=== PATIENT | female | born 1960 | race Caucasian/White ===

== ENCOUNTER 2023-07-04 20:50 | Emergency (ER) | payer OTHER, SELFPAY ==
[2023-07-04 20:56] VITALS: BP 149/53; PULSE 67; RESP 18; TEMP 36.7; O2SAT 95; BMI 33.0
--- NOTE | 2023-07-04 21:03 | PC.NURSE ---
No redness, swelling, bruising and skin intact at site of complaint.
--- NOTE | 2023-07-04 21:11 | XR_ITS ---
The [address] [address] Patient Name: DONG SINGLETON MRN: [id number] date: 1960 Sex: F Assigned Patient Location: ER Current Patient Location: ER Accession/Order Number: [id number] Exam Date: 07/04/2023 21:38 Report Date: 07/04/2023 22:05 At the request of: GABBY CANCINO Procedure: XR ribs LT min 3V w CXR1V Exam: Radiographs: XR ribs LT min 3V w CXR1V Reason for exam: left pos. chest wall injury Comparison: Chest x-ray dated 06/08/2022 XR/XR ribs LT min 3V w CXR1V IMPRESSION: No radiographically evident left rib fractures. Chest and left rib radiographs are otherwise unremarkable. Electronically authenticated by: TERRELL DUVALL Date: 07/04/2023 22:05
--- NOTE | 2023-07-04 21:12 | ED.BACK1 ---
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 It did not knock her down but pushed her. She developed pain at the site. Denies other injury. The incident did frighten her and she began crying. She is not short of breath. Pain does not increase with deep breath. No associated nausea or vomiting. Related Data Home Medications Medication Instructions Recorded Confirmed atorvastatin 20 mg tablet 20 mg PO DAILY 07/04/23 07/04/23 lisinopril 10 mg tablet 10 mg PO QAM 07/04/23 07/04/23 metformin 850 mg tablet 1,700 mg PO QAM 07/04/23 07/04/23 sertraline 100 mg tablet 100 mg PO QAM 07/04/23 07/04/23 Allergies Allergy/AdvReac Type Severity Reaction Status Date / Time Sulfa (Sulfonamide Allergy Severe Verified 07/04/23 20:59 Antibiotics) sulfamethoxazole Allergy Severe Verified 07/04/23 20:59 [From Bactrim] trimethoprim [From Bactrim] Allergy Severe Verified 07/04/23 20:59 Review of Systems ROS Status of ROS 10 or more systems reviewed and unremarkable except as noted in history and below Exam Constitutional Vital Signs, click to edit/add: Last Vital Signs Temp 98.0 F 07/04/23 20:56 Pulse 67 07/04/23 20:56 Resp 18 07/04/23 20:56 BP 149/53 H 07/04/23 20:56 Pulse Ox 95 07/04/23 20:56 O2 Del Method Room Air 07/04/23 20:56 Common normals: no apparent distress, average body habitus, oriented x3, no limitations, healthy appearing, alert and well nourished [facility] Common normals: normocephalic and head/scalp atraumatic Respiratory Common normals: normal respiratory effort, no retractions, no use of accessory muscles and clear to auscultation bilaterally Cardio Common normals: regular rate, regular rhythm, S1 normal heart sound and S2 normal heart sound GI Common normals: Normal to inspection, nondistended, normoactive bowel sounds present, soft to palpation and non-tender Back & Pelvis Back image (female): 1. mild tenderness. No obvious contusion Extremity Common normals: normal to inspection and full ROM Neuro Common normals: oriented x3, CN's II-XII intact bilaterally, moves all extremities and no focal motor deficits Psych Appearance: grossly normal Course Vital Signs Vital signs: Vital Signs Temperature 98.0 F 07/04/23 20:56 Pulse Rate 67 07/04/23 20:56 Respiratory Rate 18 07/04/23 20:56 Blood Pressure 149/53 H 07/04/23 20:56 Pulse Oximetry 95 07/04/23 20:56 Oxygen Delivery Method Room Air 07/04/23 20:56 Temperature 98.0 F 07/04/23 20:56 Pulse Rate 67 07/04/23 20:56 Respiratory Rate 18 07/04/23 20:56 Blood Pressure 149/53 H 07/04/23 20:56 Pulse Oximetry 95 07/04/23 20:56 Oxygen Delivery Method Room Air 07/04/23 20:56 MDM - Back Pain/Injury MDM Narrative Medical decision making narrative: [place] [address] XRay Report Signed Patient: DONG SINGLETON MR#: [id number] : 1960 Acct:[id number] Age/Sex: 62 / F ADM Date: 07/04/23 Loc: ER Attending Dr: Ordering Physician: Chapo Aiken Date of Service: 07/04/23 Procedure(s): XR ribs LT min 3V w CXR1V Accession Number(s): [id number] cc: Chapo Aiken; Physician,Non-Staff M.D.~ The [address] [id number] Patient Name: DONG SINGLETON MRN: [id number] date: 1960 Sex: F Assigned Patient Location: ER Current Patient Location: ER Accession/Order Number: [id number] Exam Date: 07/04/2023 21:38 Report Date: 07/04/2023 22:05 At the request of: CHAPO AIKEN Procedure: XR ribs LT min 3V w CXR1V Exam: Radiographs: XR ribs LT min 3V w CXR1V Reason for exam: left pos. chest wall injury Comparison: Chest x-ray dated 06/08/2022 XR/XR ribs LT min 3V w CXR1V IMPRESSION: No radiographically evident left rib fractures. Chest and left rib radiographs are otherwise unremarkable. 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 left pos. rib cage. Was not knocked down. Does have pain that is mild and positional. skin clear. rib films neg. Patient advised of diagnosis of bruised ribs and discharged home Discharge Plan Discharge Chief Complaint: Back Pain/Injury Clinical Impression: Bruised ribs Patient Disposition: Home, Self-Care Prescriptions / Home Meds: No Action atorvastatin 20 mg tablet 20 mg PO DAILY lisinopril 10 mg tablet 10 mg PO QAM metformin 850 mg tablet 1,700 mg PO QAM sertraline 100 mg tablet 100 mg PO QAM Instructions: Rib Contusion (ED) Stand Alone Forms: Portal Instructions Referrals: Physician,Non-Staff, MD [Primary Care Provider] - 1 week
== END 2023-07-04 22:45 | disposition home or self-care (01) ==
PROVIDERS: Emergency Provider Internal Medicine
DX: R07.9 Chest pain, unspecified (principal); S20.212A Contusion of left front wall of thorax, initial encounter; V98.8XXA Other specified transport accidents, initial encounter
CPT/HCPCS: 71101; 99283

== ENCOUNTER 2024-04-09 18:05 | Emergency (ER) | payer OTHER, SELFPAY ==
[2024-04-09 18:08] VITALS: BP 149/65; PULSE 62; TEMP 37.5; O2SAT 99; BMI 27.5
--- OUTSIDE RECORDS SUMMARY | 2024-04-09 18:13 | XMS_ITS | CCD ---
Author Organization [place] [facility] Team Providers Care Functional Analyst Name Role Phone GABBY CANCINO Attending Unavailable GABBY CANCINO Admitting Unavailable RAYNA CHONG Consulting Unavailable MISC, DR HEALY Primary Care Unavailable DEZ MEMBRENO Consulting Unavailable CAITLIN OLMOS Consulting Unavailable CAITLIN OLMOS Admitting Unavailable MISZuleima, DR HEALY Primary Care Unavailable CAITLIN OLMOS Attending Unavailable Ashley Logan Primary Care Physician Caitlin OLMOS Primary Care Physician Haley Acosta MD Primary Care Provider CAITLIN OLMOS Attending Unavailable CAITLIN OLMOS Attending Unavailable Caitlin OLMOS Attending Unavailable Caitlin OLMOS Admitting Unavailable Caitlin OLMOS Referring Unavailable Akkina, Zen Attending Unavailable Akkina, Zen Admitting Unavailable Akkina, Zen Attending Unavailable Akkina, Zen Admitting Unavailable Akkina, Zen Attending Unavailable Akkina, Zen Admitting Unavailable Allergies Allergy Classification Reported Allergen(s) Allergy Type Date of Onset Reaction(s) Facility (2 sources) Sulfamethoxazole / Trimethoprim; Translations: [Bactrim] Drug Allergy [facility] (1 source) Sulfonamides (Antibiotic) Drug allergy (disorder) 06-08-20 [facility] (6 sources) Sulfamethoxazole / Trimethoprim; Translations: [sulfamethoxazole-tr imethoprim] Drug Allergy 04-17-20 23 Urticaria (disorder), Hives, Rash [facility] (6 sources) Sulfonamides (Antibiotic); Translations: [sulfa drugs] Allergy to substance 04-08-20 Unknown [facility] (1 source) Sulfonamides (Antibiotic) Drug Allergy 04-17-20 Rash [facility] Medications Current Medications Medication Drug Class(es) Dates Sig (Normalized) Sig (Original) acetaminophen 325 mg / HYDROcodone bitartrate 5 mg oral tablet (5 sources) Opioid Agonist Start: 11-01-2020 [place] 325 mg-5 mg oral tablet 1 tab(s), Oral, q6hr as needed for pain, 12 tab(s), Refill(s) 0 Start Date: 11/01/20 Status: Ordered atorvastatin 20 mg oral tablet (6 sources) HMG-CoA Reductase Inhibitor Start: 04-17-2023 take 1 tablet by mouth in the morning atorvastatin (Lipitor) 20 MG tablet Indications: Mixed hyperlipidemia (CMS/HCC) Take 1 tablet (20 mg) by mouth in the morning. 90 tablet 3 04/17/2023 Active Start: 06-28-2022 atorvastatin R efills(s) 0 Start Date: 06/28/22 Status: Ordered cyclobenzaprine hydrochloride 10 mg oral tablet (5 sources) Muscle Relaxant Start: 11-01-2020 take 1 tablet by mouth three times daily as needed for muscle spasms cyclobenzaprine 10 mg Tab 10 mg = 1 tab(s), Oral, TID, PRN for spasm, # 20 tab(s), Refills(s) 0 Start Date: 11/01/20 Status: Ordered lisinopril 10 mg oral tablet (6 sources) Angiotensin Converting Enzyme Inhibitor Start: 04-17-2023 take 1 tablet by mouth in the morning lisinopril 10 MG tablet Indications: Primary hypertension (CMS/HCC) Take 1 tablet (10 mg) by mouth in the morning. 90 tablet 3 04/17/2023 Active Start: 06-28-2022 lisinopril Ref ills(s) 0 Start Date: 06/28/22 Status: Ordered {2 (480 ML) (magnesium sulfate 0.0277 MEQ/ML / potassium sulfate 0.0374 MEQ/ML / sodium sulfate 0.257 MEQ/ML Oral Solution) } Pack [Suprep Bowel Prep Kit] (5 sources) Start: 06-28-2022 Suprep Bowel P rep Kit oral liquid See Instructions, 1 kit(s), Refill(s) 0, 177 mL Oral As Directed 2 dose(s), [facility] #[id number], 163.8, cm, 06/28/22 16:09:00 EST, Height/Length Dosing, 94.3, kg, 06/28/22 16:09:00 EST, Weight Dosing Start Date: 06/28/22 Status: Ordered metFORMIN hydrochloride 850 mg oral tablet (6 sources) Biguanide Start: 04-17-2023 take 2 tablets by mouth in the morning metFORMIN (Glucophage) 850 MG tablet Indications: Type 2 diabetes mellitus without complication, unspecified whether mcc insulin use (CMS/HCC) Take 2 tablets (1,700 mg) by mouth in the morning. 180 tablet 3 04/17/2023 Active Start: 06-28-2022 metformin Refi lls(s) 0 Start Date: 06/28/22 Status: Ordered naproxen 500 mg oral tablet (5 sources) Nonsteroidal Anti-inflammatory Drug Start: 11-01-2020 take 1 tablet by mouth twice daily Naprosyn 500 mg Tab 500 mg = 1 tab(s), Oral, BID, # 20 tab(s), Refills(s) 0 Start Date: 11/01/20 Status: Ordered 0.25 mg, 0.5 mg dose 1.5 ml semaglutide 1.34 mg/ml pen injector (2 sources) Start: 07-21-2023 inject 0.5 mg by subcutaneous injection every week semaglutide (Ozempic, 0.25 or 0.5 MG/DOSE,) 2 MG/1.5ML solution pen-injector Indications: Type 2 diabetes mellitus without complication, 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 1 each 2 04/17/2023 07/21/2023 Discontinued (Reorder) sertraline 100 mg oral tablet (6 sources) Serotonin Reuptake Inhibitor Start: 06-28-2022 sertraline 100 mg Ta b Refills(s) 0 Start Date: 06/28/22 Status: Ordered Problems Active Problems Problem Classification Problem Date Documented Da te Episodic/Chronic Anxiety disorders (1 source) Anxiety; Translations: [Anxiety disorder, unspecified] Onset: 04-17-2023 04-17-2023 Chronic Diabetes mellitus without complication (2 sources) Type 2 diabetes mellitus without complication; Translations: [Type 2 diabetes mellitus without complications] Onset: 04-17-2023 07-21-2023 Chronic Disorders of lipid metabolism (1 source) Mixed hyperlipidemia; Translations: [Mixed hyperlipidemia] Onset: 04-17-2023 04-17-2023 Chronic Essential hypertension (2 sources) Essential hypertension; Translations: [Essential (primary) hypertension] Onset: 04-17-2023 08-03-2023 Chronic Other aftercare (1 source) long term care pharmacist (current) use of oral hypoglycemic drugs; Translations: [ASSISTED USE ORAL HYPOGLYCEMIC DX] Onset: 06-12-2022 Episodic Other aftercare (1 source) Other dedicated 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 truck driver (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) drug therapy; Translations: [OTH ASSISTED CURRENT DRUG THERAPY] Onset: 06-12-2022 Episodic Other gastrointestinal disorders (1 source) Abnormal feces; Translations: [Other fecal abnormalities] Onset: 06-28-2022 Episodic Other screening for suspected conditions (not mental disorders or infectious disease) (6 sources) Stool DNA-based colorectal cancer screening positive; Translations: [Patient encounter status] 06-28-2022 Episodic Other upper respiratory infections (1 source) Acute upper respiratory infection, unspecified; Translations: [ACUTE UP RESPIRATORY INFECTION UNS] Onset: 06-12-2022 Episodic Unclassified (3 sources) COUGH, UNSPECIFIED; Translations: [COUGH, UNSPECIFIED] Onset: 06-12-2022 Unclassified (3 sources) CONTACT W/AND (SUSP) EXPOS COVID-19; Translations: [CONTACT W/AND (SUSP) EXPOS COVID-19] Onset: 07-05-2021 Viral infection (1 source) COVID-19; Translations: [COVID-19] Onset: 07-05-2021 Past or Other Problems Problem Classification Problem Date Documented Da te Episodic/Chronic Unclassified (1 source) COUGH, UNSPECIFIED; Translations: [COUGH, UNSPECIFIED] Onset: 06-08-2022 Unclassified (1 source) CONTACT W/AND (SUSP) EXPOS COVID-19; Translations: [CONTACT W/AND (SUSP) EXPOS COVID-19] Onset: 06-30-2021 Results Test Name Value Interpretation Reference Range Facility P[facility] [place] 04-06-2024 Parathyrin.intact [Mass/Vol] 50 pg/mL Invalid Interpretation Code 15 [facility] Comment on above: Result Comment: Perf ormed at: [facility] [address] [id number] PhD Zac Mcfadden Performed By: #### 1 [id number] #### [facility] [address] [place] [address] CHEMISTRYOrdered By: SYSTEM SYSTEM on 04-05-2024 25-hydroxyvitamin D3 [Mass/Vol] 26.5 ng/mL Low 30.0 - 100.0 ng/mL Remisol Chem Albumin [Mass/Vol] 4.3 g/dL Normal 3.3 - 5.0 gm/dL [facility] Anion gap [Moles/Vol] 13 mmol/L Normal 6 - 16 mEq/L R emisol Chem Calcium [Mass/Vol] 9.5 mg/dL Normal 8.9 - 11. 1 mg/dL [facility] Chloride [Moles/Vol] 106 mmol/L Normal 101 - 1 11 mmol/L [facility] CO2 [Moles/Vol] 29 mmol/L Normal 21 - 31 mmol/L [facility] Creatinine [Mass/Vol] 1.1 mg/dL Normal 0.5 - 1.3 mg/dL [facility] eGFR 56 mL/min/1.73 m2 Low >=59mL/min /1. 73 m2 [facility] Glucose [Mass/Vol] 137 mg/dL Normal 55 - 199 mg/dL [facility] Phosphate [Mass/Vol] 3.9 mg/dL Normal 1.9 - 4 .6 mg/dL [facility] Potassium [Moles/Vol] 4.6 mmol/L Normal 3.5 - 5.3 mmol/L [facility] Sodium [Moles/Vol] 143 mmol/L Normal 135 - 145 mmol/L [facility] Urea nitrogen [Mass/Vol] 20 mg/dL Normal 5 - 21 mg/dL [facility] Urea nitrogen/Creatinine [Mass ratio] 18 mg/mg Normal 10 - 20 [facility] Protein/Creatinine (U) [Ratio] 6.50 mg/gm Cr Normal 0.00 - 200.00 mg/gm Cr Remisol Chem U Creatinine 70.4 mg/dL Invalid Interpretation Code Remisol Chem Ur Total Protein 4.6 mg/dL Invalid Interpretation Code Remisol Chem HEMATOLOGYOrdered By: SYSTEM SYSTEM on 04-05-2024 Hematocrit (Bld) [Volume fraction] 39.1 % Normal 34.0 - 46.0 % Remisol Heme Hemoglobin (Bld) [Mass/Vol] 13.8 g/dL Normal 12.0 - 16.0 gm/dL Remisol Heme Hct & Hgbon 04-05-2024 Hematocrit (Bld) [Volume fraction] 39.1 % Normal 34.0-46.0 [facility] Comment on above: Performed By: #### 1 [id number] #### [facility] [address] [place] [address] Hemoglobin (Bld) [Mass/Vol] 13.8 g/dL Normal 12.0-16.0 [facility] Comment on above: Performed By: #### 1 [id number] #### [facility] [address] [place] [address] Renal Panelon 04-05-2024 Albumin [Mass/Vol] 4.3 g/dL Normal 3.3-5.0 [facility] Comment on above: Performed By: #### 1 [id number] #### [facility] [address] [place] [address] Anion gap [Moles/Vol] 13 mmol/L Normal 6-16 [facility] Comment on above: Performed By: #### 1 [id number] #### [facility] [address] [place] [address] Calcium [Mass/Vol] 9.5 mg/dL Normal 8.9-11.1 [facility] Comment on above: Performed By: #### 1 [id number] #### [facility] [address] [place] [address] Chloride [Moles/Vol] 106 mmol/L Normal 101-111 [facility] Comment on above: Performed By: #### 1 [id number] #### [facility] [address] [place] [address] CO2 [Moles/Vol] 29 mmol/L Normal 21-31 [facility] Comment on above: Performed By: #### 1 [id number] #### [facility] [address] [place] [address] Creatinine [Mass/Vol] 1.1 mg/dL Normal 0.5-1.3 [facility] Comment on above: Performed By: #### 1 [id number] #### [facility] [address] [place] [address] Glucose [Mass/Vol] 137 mg/dL Normal 55-199 [facility] Comment on above: Performed By: #### 1 [id number] #### [facility] [address] [place] [address] Phosphate [Mass/Vol] 3.9 mg/dL Normal 1.9-4.6 [facility] Comment on above: Performed By: #### 1 [id number] #### [facility] [address] [place] [address] Potassium [Moles/Vol] 4.6 mmol/L Normal 3.5-5.3 [facility] Comment on above: Performed By: #### 1 [id number] #### [facility] [address] [place] [address] Sodium [Moles/Vol] 143 mmol/L Normal 135-145 [facility] Comment on above: Performed By: #### 1 [id number] #### [facility] [address] [place] [address] Urea nitrogen [Mass/Vol] 20 mg/dL Normal 5-21 [facility] Comment on above: Performed By: #### 1 [id number] #### [facility] [address] [place] [address] Urea nitrogen/Creatinine [Mass ratio] 18 No Units Normal 04-14 [facility] Comment on above: Performed By: #### 1 [id number] #### [facility] [address] [place] [address] U Protein/Creat Ratioon 03-26 Protein/Creatinine (U) [Ratio] 6.50 mg/gm Cr Normal .00-200.00 [facility] Comment on above: Performed By: #### 1 [id number] #### [facility] [address] [place] [address] U Creatinine 70.4 mg/dL Invalid Interpretation Code [facility] Comment on above: Performed By: #### 1 [id number] #### [facility] [address] [place] [address] Ur Total Protein 4.6 mg/dL Invalid Interpretation Code [facility] Comment on above: Performed By: #### 1 [id number] #### [facility] [address] [place] [address] URINALYSISOrdered By: SYSTEM SYSTEM on 04-05-2024 Bilirubin Ql (U) Negative Normal Negativemg/dL [facility] UA Auto SS Clarity (U) Clear (04/05/24 10:44 AM) Normal Clear [facility] UA Auto SS Color (U) Light-Yellow 1 (04/05/24 10:44 AM) Normal Yellow [facility] UA Auto SS Comment on above: Interpretive Data: M icroscopic readings are only performed on those samples that meet specific criteria set forth by [facility]. Glucose Ql (U) Negative Normal Negativemg/dL [facility] UA Auto SS Hemoglobin Auto test strip (U) [Mass/Vol] Negative Normal Negativemg/dL [facility] Aut o SS Ketones Auto test strip Ql (U) Negative Normal Negativemg/dL [facility] UA Auto SS Leukocyte esterase Auto test strip Ql (U) Negative Normal NegativeLeu/u L [facility] UA Auto SS Nitrite Auto test strip Ql (U) Negative Normal Negativemg/dL [facility]A Auto SS pH (U) 6.0 *NA* (04/05/24 10:44 AM) Invalid Interpretation Code 5.0 - 9.0 [facility] UA Auto SS Protein Ql (U) Negative Normal Negativemg/dL [facility] UA Auto SS Specific gravity (U) [Rel density] 1.012 *NA* (04/05/24 10:44 AM) Invalid Interpretation Code 1.005 - 1.030 [facility] UA Auto SS Urobilinogen (U) [Mass/Vol] Negative Normal Negativemg/dL [facility] UA Auto SS URINALYSISOrdered By: Ernestine Corbin on 04-05-2024 UA Spec Desc Clean Catch (04/05/24 10:44 AM) Normal [facility] UA Auto SS Urinalysis with Microon 03-26 Bilirubin Ql (U) Negative Normal Negative [facility] Comment on above: Performed By: #### 4 [id number] #### [facility] [address] [place] [address] Clarity (U) Clear Normal Clear [facility] Comment on above: Performed By: #### 4 [id number] #### [facility] [address] [place] [address] Color (U) Light-Yellow Normal Yellow [facility] Comment on above: Result Comment: Micr oscopic readings are only performed on those samples that meet specific criteria set forth by [facility]. Performed By: #### 4 [id number] #### [facility] [address] [place] [address] Glucose Ql (U) Negative Normal Negative [facility] Comment on above: Performed By: #### 4 [id number] #### [facility] [address] [place] [address] Hemoglobin Auto test strip (U) [Mass/Vol] Negative Normal Negative [facility] Comment on above: Performed By: #### 4 [id number] #### [facility] [address] [place] [address] Ketones Auto test strip Ql (U) Negative Normal Negative [facility] Comment on above: Performed By: #### 4 [id number] #### [facility] [address] [place] [address] Leukocyte esterase Auto test strip Ql (U) Negative Normal Negative [facility] Comment on above: Performed By: #### 4 [id number] #### [facility] [address] [place] [address] Nitrite Auto test strip Ql (U) Negative Normal Negative [facility] Comment on above: Performed By: #### 4 [id number] #### [facility] [address] [place] [address] pH (U) 6.0 [pH] Invalid Interpretation Code 5.0-9.0 [facility] Comment on above: Performed By: #### 4 [id number] #### [facility] [address] [place] [address] Protein Ql (U) Negative Normal Negative [facility] Comment on above: Performed By: #### 4 [id number] #### [facility] [address] [place] [address] Specific gravity (U) [Rel density] 1.012 Invalid Interpretation Code 1.005-1.030 [facility] Comment on above: Performed By: #### 4 [id number] #### [facility] [address] [place] [address] Urobilinogen (U) [Mass/Vol] Negative Normal Negative [facility] Comment on above: Performed By: #### 4 [id number] #### [facility] [address] [place] [address] Type of Urine collection method Clean Catch Normal [facility] Comment on above: Performed By: #### 4 [id number] #### [facility] [address] [place] [address] Vitamin D 25 Hydroxyon 04-05 25-hydroxyvitamin D3 [Mass/Vol] 26.5 ng/mL Low 30.0-100.0 [facility] Comment on above: Performed By: #### 5 [id number] #### [facility] [address] [place] [address] eGFRon 04-05-2024 eGFR 56 mL/min/1.73 m2 Low >=59 [facility] Comment on above: Order Comment: Order added by Discern Expert. Performed By: #### 1 [id number] #### [facility] [address] [place] [address] MA Mamm Screen w/CAD if perf and 3D Bilon 11-14-2023 MA Mamm Screen w/CAD if perf and 3D Eduardo Exam Date/Time: 11/10/2023 10:22 EDT Reason for Exam: SCREENING Report IMPRESSION: BIRADS 1 NEGATIVE, NORMAL INTERVAL FOLLOW-UP Follow-up: 12 MONTH RECALL Density: Scattered tissue. Vascular calcifications: Present. EXAM: MA Mamm Screen w/CAD if perf and 3D Eduardo DATE: 11/10/2023 10:02 AM CLINICAL HISTORY: SCREENING. COMPARISONS: 04/22/2017 and 08/28/2014. TECHNIQUE: Routine full-field digital mammograms and 3D breast tomosynthesis were obtained of both breasts. FINDINGS: There are no developing masses, suspicious microcalcifications , or areas of architectural distortion identified on the current study. No significant changes are identified from the prior studies, given differences in technique and positioning. Dense Breast: No. CAD analysis was performed and used in the interpretation. Board Certified Radiologists. Accredited by the ACR and FDA. MAMMOGRAPHY IS VERY IMPORTANT TO YOUR HEALTH. THE CURRENT [employer] GUIDELINES RECOMMENDS ANNUAL MAMMOGRAPHY BEGINNING AT AGE 40. THIS FACILITY UTILIZES A REMINDER SYSTEM TO ENSURE ALL PATIENTS RECEIVE REMINDER NOTIFICATIONS AT THE APPROPRIATE TIME BASED ON THE RECOMMENDATIONS OF THIS EXAM. Report Ordering Provider: Caitlin OLMOS FINAL REPORT Dictated: 11/14/2023 1:12 pm Samy Beltrán MD Signed (Electronic Signature): 11/14/2023 1:12 pm Signed by: Samy Beltrán MD Transcribed by: DWAYNE Technologist: [facility] Assessment: BI-RADS Category 1-Negative Recommendation: Normal interval follow-up Normal [facility] Consent for Treatmenton 10-24 Consent for Treatment [id number] 85#1.00TIFF Normal [facility] Physician Orderon 10-23-2023 Physician Order [id number] 08#1.00TIFF Normal [facility] Consent for Treatmenton 09-25 Consent for Treatment [id number] D1#1.00TIFF Normal [facility] Physician Orderon 10-21-2023 Physician Order [id number]#1.00TIFF Normal [facility] Renal Panelon 10-21-2023 Albumin [Mass/Vol] 4.2 g/dL Normal 3.3-5.0 [facility] Comment on above: Performed By: #### 1 [id number], [id number] #### [facility] [address] [place] [address] Calcium [Mass/Vol] 8.9 mg/dL Normal 8.9-11.1 [facility] Comment on above: Performed By: #### 1 [id number], [id number] #### [facility] [address] [place] [address] Chloride [Moles/Vol] 109 mmol/L Normal 101-111 [facility] Comment on above: Performed By: #### 1 [id number], [id number] #### [facility] [address] [place] [address] Glucose [Mass/Vol] 155 mg/dL Normal 55-199 [facility] Comment on above: Performed By: #### 1 [id number], [id number] #### [facility] [address] [place] [address] Phosphate [Mass/Vol] 3.9 mg/dL Normal 1.9-4.6 [facility] Comment on above: Performed By: #### 1 [id number], [id number] #### [facility] [address] [place] [address] Potassium [Moles/Vol] 4.2 mmol/L Normal 3.5-5.3 [facility] Comment on above: Performed By: #### 1 [id number], [id number] #### [facility] [address] [place] [address] Sodium [Moles/Vol] 144 mmol/L Normal 135-145 [facility] Comment on above: Performed By: #### 1 [id number], [id number] #### [facility] [address] [place] [address] Urea nitrogen [Mass/Vol] 17 mg/dL Normal 5-21 [facility] Comment on above: Performed By: #### 1 [id number], [id number] #### [facility] [address] [place] [address] Anion gap [Moles/Vol] 13 mmol/L Normal 6-16 [facility] Comment on above: Performed By: #### 1 [id number], [id number] #### [facility] [address] [place] [address] CO2 [Moles/Vol] 26 mmol/L Normal 21-31 [facility] Comment on above: Performed By: #### 1 [id number], [id number] #### [facility] [address] [place] [address] Creatinine [Mass/Vol] 1.1 mg/dL Normal 0.5-1.3 [facility] Comment on above: Performed By: #### 1 [id number], [id number] #### [facility] [address] [place] [address] Urea nitrogen/Creatinine [Mass ratio] 16 No Units Normal 10-20 [facility] Comment on above: Performed By: #### 1 [id number], [id number] #### [facility] [address] [place] [address] U Protein/Creat Ratioon 09-25 Protein/Creatinine (U) [Ratio] 7.90 mg/gm Cr Normal .00-200.00 [facility] Comment on above: Performed By: #### 4 [id number], [id number] #### [facility] [address] [place] [address] U Creatinine 98.8 mg/dL Invalid Interpretation Code [facility] Comment on above: Performed By: #### 4 [id number], [id number] #### [facility] [address] [place] [address] Ur Total Protein 7.8 mg/dL Invalid Interpretation Code [facility] Comment on above: Performed By: #### 4 [id number], [id number] #### [facility] [address] [place] [address] Urinalysis with Microon 04- Bacteria Auto Ql (U) Trace Normal Trace Fish [facility] Comment on above: Performed By: #### 4 [id number], [id number] #### [facility] [address] [place] [address] Bilirubin Ql (U) Negative Normal Negative [facility] Comment on above: Performed By: #### 4 [id number], [id number] #### [facility] [address] [place] [address] Clarity (U) Turbid Abnormal Clear [facility] Comment on above: Performed By: #### 4 [id number], [id number] #### [facility] [address] [place] [address] Color (U) Light-Yellow Normal Yellow [facility] Comment on above: Result Comment: Micr oscopic readings are only performed on those samples that meet specific criteria set forth by [facility]. Performed By: #### 4 [id number], [id number] #### [facility] [address] [place] [address] Epithelial cells.squamous Auto (Urine sed) [#/Area] 5-8 Abnormal 0-2 [facility] Comment on above: Performed By: #### 4 [id number], [id number] #### [facility] [address] [place] [address] Glucose Ql (U) Negative Normal Negative [facility] Comment on above: Performed By: #### 4 [id number], [id number] #### [facility] [address] [place] [address] Hemoglobin Auto test strip (U) [Mass/Vol] Negative Normal Negative [facility] Comment on above: Performed By: #### 4 [id number], [id number] #### [facility] [address] [place] [address] Ketones Auto test strip Ql (U) Negative Normal Negative [facility] Comment on above: Performed By: #### 4 [id number], [id number] #### [facility] [address] [place] [address] Leukocyte esterase Auto test strip Ql (U) 250 Amanda/uL Abnormal Negative [facility] Comment on above: Performed By: #### 4 [id number], [id number] #### [facility] [address] [place] [address] Mucus Auto Ql (U) Trace Normal Negative [facility] Comment on above: Performed By: #### 4 [id number] #### [facility] [address] [place] [address] Nitrite Auto test strip Ql (U) Negative Normal Negative [facility] Comment on above: Performed By: #### 4 [id number], [id number] #### [facility] [address] [place] [address] pH (U) 5.0 [pH] Invalid Interpretation Code 5.0-9.0 [facility] Comment on above: Performed By: #### 4 [id number], [id number] #### [facility] [address] [place] [address] Protein Ql (U) Negative Normal Negative [facility] Comment on above: Performed By: #### 4 [id number], [id number] #### [facility] [address] [place] [address] RBC Ql (U) 0-3 Normal 0-3 [facility] Comment on above: Performed By: #### 4 [id number], [id number] #### [facility] [address] [place] [address] Specific gravity (U) [Rel density] 1.014 Invalid Interpretation Code 1.005-1.030 [facility] Comment on above: Performed By: #### 4 [id number] #### [facility] [address] [id number] Urobilinogen (U) [Mass/Vol] Negative Normal Negative [facility] Comment on above: Performed By: #### 4 [id number], [id number] #### [facility] [address] [id number] WBC Auto (Urine sed) [#/Area] 6-15 Abnormal 0-5 [facility] Comment on above: Performed By: #### 4 [id number], [id number] #### [facility] [address] [id number] Type of Urine collection method Clean Catch Normal [facility] Comment on above: Performed By: #### 4 [id number], [id number] #### [facility] [address] [place], [place] [id number] eGFRon 10-21-2023 eGFR 56 mL/min/1.73 m2 Low >=59 [facility] Comment on above: Order Comment: Order added by Discern Expert. Performed By: #### 1 [id number] #### [facility] [address] [place], [place] [id number] POCT Glycated hemoglobin, to michele 07-21-2023 HbA1c (Bld) [Mass fraction] 7.2 % [facility] Comment on above: 7.2 Interpretation and review of laboratory results Normal [facility] Covid-19 PCR (CVDTBH)on 05-26 SARS-CoV-2 (COVID-19) RNA MUNA+probe Ql (Unsp spec) Not detected Normal NOT DETECTED [facility] Comment on above: Result Comment: When diagnostic testing is negative, the possibility of a false negative should be considered in the context of a patient's recent exposures and the presence of clinical signs and symptoms consistent with SARS-CoV-2. This test is not yet approved or cleared by the [place] FDA. When there are no FDA-approved or cleared tests available, and other criteria are met, FDA can make tests available under an emergency access mechanism called an Emergency Use Authorization (EUA). The EUA for this test is supported by the [place] of Health and Human Service's declaration that circumstances exist to justify the emergency use of in vitro diagnostics for the detection and/or diagnosis of the virus that causes COVID-19. This EUA will remain in effect for the duration of the COVID-19 declaration justifying emergency of IVDs, unless it is terminated or revoked by the FDA (after which the test may no longer be used). Performed By: #### C VDTB #### [facility] [address] [place] [address] Dr. Amrita Loco INFLUENZA A AND B [facility] 06-08 [facility] SEE BELOW Normal [facility] Comment on above: Result Comment: Nega tive for Flu A protein angiten. Infection due to Flu A cannot be ruled out. Flu A angiten in the sample may be below the detection limit of the test. Performed By: #### I NFLUAB #### [facility] [address] [place] [address] Dr. [facility] Normal [facility] Comment on above: Result Comment: Nega tive for Flu B protein antigen. Infection due to Flu B cannot be ruled out. Flu B antigen in the sample may be below the detection limit of the test. Performed By: #### I NFLUAB #### [facility] [address] [place] [address] Dr. Amrita Loco INFLUENZA A AG Negative Normal NEGATIVE SEE COMMENT [facility] Comment on above: Performed By: #### I NFLUAB #### [facility] [address] [place] [address] Dr. Amrita Loco INFLUENZA B AG Negative Normal NEGATIVE SEE COMMENT [facility] Comment on above: Performed By: #### I NFLUAB #### [facility] [address] [place] [address] Dr. Amrita Loco INTERNAL CONTROLS Within Normal Limits Normal Within Normal Limits [facility] Comment on above: Performed By: #### I NFLUAB #### [facility] [address] [place] [address] Dr. Amrita Loco XR CHEST 1 Von 06-08-2022 XR CHEST 1 V CXR HISTORY: Shortness of breath COMPARISON: None. TECHNIQUE: 1 view chest submitted for review. FINDINGS: The lungs are adequately expanded without evidence of acute infiltrate or effusion. The cardiac silhouette measures within normal. Pulmonary vascularity is unremarkable. Osseous structures are within normal limits for age. IMPRESSION: No plain film evidence for acute cardiopulmonary disease. Electronically authenticated by: DEZ MEMBRENO Date: 2022-06-08 20:48 Normal [facility] Covid-19 PCR (CVDTBH)on SARS-CoV-2 (COVID-19) RNA MUNA+probe Ql (Unsp spec) Detected Critically abnormal NOT DETECTED [facility] Comment on above: Result Comment: This test is not yet approved or cleared by the [place] FDA. When there are no FDA-approved or cleared tests available, and other criteria are met, FDA can make tests available under an emergency access mechanism called an Emergency Use Authorization (EUA). The EUA for this test is supported by the [employer] of Health and Human Service's (HHS's) declaration that circumstances exist to justify the emergency use of in vitro diagnostics for the detection and/or diagnosis of the virus that causes COVID-19. This EUA will remain in effect (meaning this test can be used) for the duration of the COVID-19 declaration justifying emergency of IVDs, unless it is terminated or revoked by FDA (after which the test may no longer be used). Performed By: #### C [facility] #### [facility] [address] [place] [address] Dr. Amrita Loco Vital Signs Date Time Vital Sign Value Performing Clinician Facility 07-21-2023 10:20-0500 Body mass index (BMI) [Ratio] 35.53 kg/m2 [address] Work Phone: [facility] 07-21-2023 10:20-0500 Body temperature 97.3 [degF] [address] Work Phone: [facility] 07-21-2023 10:20-0500 Body weight 93.[address] Work Phone: [facility] 07-21-2023 10:20-0500 Diastolic blood pressure 70 mm[Hg] [address]aitlin [address] Work Phone: [facility] 07-21-2023 10:20-0500 Heart rate 62 /min Caitlin Olmos PA Work Phone: [facility] 07-21-2023 10:20-0500 SaO2% (BldA) [Mass fraction] 97 % Caitlin Olmos PA Work Phone: [facility] 07-21-2023 10:20-0500 Systolic blood pressure 118 mm[Hg] Caitlin Olmos PA Work Phone: [facility] 06-28-2022 16:05-0500 Blood Pressure Location Karishma Irwin [facility] 06-28-2022 16:05-0500 Body temperature 97.7 [degF] Karishma Irwin [facility] 06-28-2022 16:05-0500 Diastolic blood pressure 81 mm[Hg] Karishma Irwin [facility] 06-28-2022 16:05-0500 Heart rate 63 /min Karishma Irwin [facility] 06-28-2022 16:05-0500 Systolic blood pressure 128 mm[Hg] Karishma Irwin [facility] Encounters Encounter Date Encounter Type Care Provider Facility Start: 04-05-2024 End: 04-05-2024 ambulatory Zen Akelizabetha Facility:[facility] Start: 04-05-2024 End: 04-05-2024 Patient encounter procedure Zendank Kirbya [facility] Start: 11-10-2023 End: 11-10-2023 ambulatory Caitlin OLMOS Facility:[facility] Start: 11-10-2023 End: 11-10-2023 Patient encounter procedure Caitlin OLMOS [facility] Start: 10-23-2023 End: 10-23-2023 ambulatory CAITLIN OLMOS Not Available Start: 10-21-2023 End: 10-21-2023 ambulatory Zen Mirtaa Facility:[facility] Start: 07-21-2023 End: 07-21-2023 ambulatory CAITLIN OLMOS Not Available Start: 07-21-2023 End: 07-21-2023 Office outpatient visit [address] Work Phone: [facility] Comment on above: Primary hypertension (CMS/HCC) (Primary Dx); Type 2 diabetes mellitus without complication, unspecified whether mcc insulin use (CMS/HCC); Breast cancer screening by mammogram Start: 09-19-2022 End: 09-19-2022 Patient encounter procedure Zen Young [facility] Start: 07-19-2022 End: 07-19-2022 Lab Drop off Dawood DIAMOND [facility] Start: 06-28-2022 End: 06-28-2022 Patient encounter procedure Karishma Irwin [facility] Start: 06-08-2022 End: 06-09-2022 ambulatory GABBY CANCINO Facility: Start: 06-30-2021 End: 06-30-2021 ambulatory CAITLIN OLMOS Facility: Procedures Date Procedure Procedure Detail Performing Clinician Start: 07-21-2023 Hemoglobin glycosyla michael a1c Caitlin Olmos PA Work Phone: Hysterectomy Karishma Irwin Plan of Treatment Date Care Activity Detail Author Start: 05-10-2025 Screening for malign ant neoplasm of colon [facility] Start: 10-23-2023 End: 10-23-2023 Patient encounter procedure 10/23/2023 10:00 AM EDT Office Visit [facility] [address] [place] [id number] Caitlin Olmos PA [address] [place] [address] [facility] Start: 10-20-2023 Hemoglobin A1c measurement Diabetes: Hemoglobin A1C [facility] Start: 07-21-2023 End: 09-18-2024 MG Breast - bilateral Screening Bilateral screening mammogram Imaging Routine Breast cancer screening by mammogram Expected: 07/21/2023, Expires: 09/18/2024 [facility] Work Phone: Comment on above: Expected: 07/21/2023 , Expires: 09/18/2024 Start: 2000 Screening for malign ant neoplasm of breast Mammogram [facility] Start: 1970 Glaucoma screening Diabetes: R etinopathy Screening [facility] Start: 1960 Screening for malign ant neoplasm of colon [facility] Immunizations Immunization Date Immunization Notes Care Provider Fa cili 04-17-2023 influenza, injectable, quadrivalent, contains preservative [address]aitlin [address] Work Phone: [facility] 04-23-2022 zoster vaccine recombinant Karishma Irwin [facility] 02-13-2022 zoster vaccine recombinant Karishma Irwin [facility] 01-22-2022 SARS-CoV-2 mRNA (xehirslycxi-oudl-msb agatha) vaccine Karishma Altamiranoz [facility] 10-13-2020 SARS-CoV-2 (COVID-19 ) mRNA BNT-162b2 vax Kairshma Irwin [facility] Comment on above: Result Comment: 2021: TPV50 09-22-2020 SARS-CoV-2 (COVID-19 ) mRNA BNT-162b2 vax Karishma Irwin [facility] Comment on above: Result Comment: 2021: [id number] NEGATED: Highlighted row has not occurred!06-28-2022 influenza virus vaccine, unspecified formulation Karishma Irwin [facility] Payers Date Payer Category Payer Unknown BCBS BCBS [id number] [id number] 2023-Present [phone] [address] [place] [address] [id number] 2023 Unknown [id number] 1960 Unknown [id number] 1960 Unknown [id number] 1960 Unknown [id number] 1960 Unknown [id number] 1960 Unknown [id number] 1960 Unknown [id number] 1960 Unknown [id number] 1959 Unknown [id number] Social History Date Type Detail Facility Start: 06-28-2022 Tobacco smoking status Never s moked tobacco (finding) [facility] Comment on above: denies Tobacco smoking status Never Stanislawe [facility] Comment on above: denies Start: 07-21-2023 Sex Assigned At Female F [facility] Start: 04-17-2023 Tobacco smoking stat us NHIS Ex-smoker [facility] History of tobacco use Current smoker [facility] History of tobacco use [facility]igarette Smoker [facility] Start: 04-17-2023 Tobacco use and exposure Smokeless tobacco non-user [facility] Start: 07-21-2023 Alcohol intake Current drinke r of alcohol (finding) [facility] Start: 07-21-2023 History of Social function [facility] Start: 1960 Sex Assigned At Not on file N [facility] Functional Status Date Assessment Result Facility 06-28-2022 Functional Status N/A [facility] Evaluation + Plan note 04-05-2024 Note Date & Type Note Facility 04-05-2024 Evaluation + Plan note Diagnostic Tests PendingPTH Intact 04/05/24 [facility] History of Present illness Narrative 08-03-2023 RAYNA Robles - 08/03/2023 3:16 PM RAYNA Lunsford - 08/03/2023 3:14 PM RAYNA Lunsford - 07/21/2023 10:30 AM EST Note Date & Type Note Facility 08-03-2023 History of Presen t illness Narrative Associated Problem(s): HTN (hypertension) (CMS/HCC) stable Associated Problem(s): Type 2 diabetes mellitus without complication (CMS/HCC) Improved Will continue current meds Lisa Singleton is a 62 y.o. female presents with chief complaint of Diabetes and medication review HPI: HPI pt here today for med review and A1c check Patient is here for diabetes check up Patient states that SUBJECTIVE: MEDICATIONS: Current Outpatient Medications Medication Instructions atorvastatin (LIPITOR) 20 mg, Oral, Daily lisinopril 10 mg, Oral, Daily metFORMIN (GLUCOPHAGE) 1,700 mg, Oral, Daily Ozempic (0.25 or 0.5 MG/DOSE) 0.5 mg, Subcutaneous, Weekly, Qs x 3 months sertraline (ZOLOFT) 100 mg, Oral, Daily ALLERGIES: Allergies Allergen Reactions Sulfa Antibiotics Rash Sulfamethoxazole-Trimethoprim Hives and Rash SOCIAL HISTORY: Social History Tobacco Use Smoking status: Former Types: Cigarettes Smokeless tobacco: Never Substance Use Topics Alcohol use: Yes Alcohol/week: 2.0 - 3.0 standard drinks of alcohol Types: 2 - 3 Standard drinks or equivalent per week Drug use: Defer Depression: Not on file REVIEW OF SYMPTOMS: General: Denies fever, chills, fatigue, GILBRET or weight loss/gain CV: Denies CP, palpitations or swelling in legs Resp: denies cough, SOB or wheezing GI: Denies abd pain/n/v/c/d Skin: Denies rash Neuro: Denies LH or dizziness OBJECTIVE: Visit Vitals BP 118/70 Pulse 62 Temp 97.3 F Wt 207 lb SpO2 97% BMI 35.53 kg/m Smoking Status Former BSA 2.06 m General: alert & oriented, NAD Head: NC/AT Oral Cavity: MMM Skin: warm, dry Heart: RRR, No m/r/g, S1S2 nml Lungs: CTA b/l Abdomen: soft, ND/NT, BS wnl Musculoskeletal: normal gait Extremities: no clubbing, cyanosis or edema Neurological: nonfocal Psych: mood/affect full range ASSESSMENT AND PLAN: Assessment/Plan Problem List Items Addressed This Visit Type 2 diabetes mellitus without complication (CMS/HCC) Improved Will continue current meds Relevant Medications semaglutide (Ozempic, 0.25 or 0.5 MG/DOSE,) 2 MG/1.5ML solution pen-injector Other Relevant Orders POCT Glycated hemoglobin, total (Completed) Other Visit Diagnoses Breast cancer screening by mammogram Relevant Orders Bilateral screening mammogram documented in this encounter [facility] Discharge instructions 06-28-2022 Note Date & Type Note Facility 06-28-2022 Hospital Discharg e instructions Patient Education 06/28/2022 15:06:14 Colonoscopy, Adult Colonoscopy, Adult A colonoscopy is an exam to look at the entire large intestine. During the exam, a lubricated, flexible tube that has a camera on the end of it is inserted into the anus and then passed into the rectum, colon, and other parts of the large intestine. You may have a colonoscopy as a part of normal colorectal screening or if you have certain symptoms, such as: Lack of red blood cells (anemia). Diarrhea that does not go away. Abdominal pain. Blood in your stool (feces). A colonoscopy can help screen for and diagnose medical problems, including: Tumors. Polyps. Inflammation. Areas of bleeding. Tell a health care provider about: Any allergies you have. All medicines you are taking, including vitamins, herbs, eye drops, creams, and pjlg-nyy-apuviff medicines. Any problems you or family members have had with anesthetic medicines. Any blood disorders you have. Any surgeries you have had. Any medical conditions you have. Any problems you have had passing stool. What are the risks? Generally, this is a safe procedure. However, problems may occur, including: Bleeding. A tear in the intestine. A reaction to medicines given during the exam. Infection (rare). What happens before the procedure? Eating and drinking restrictions Follow instructions from your health care provider about eating and drinking, which may include: A few days before the procedure follow a low-fiber diet. Avoid nuts, seeds, dried fruit, raw fruits, and vegetables. 1 3 days before the procedure follow a clear liquid diet. Drink only clear liquids, such as clear broth or bouillon, black coffee or tea, clear juice, clear soft drinks or sports drinks, gelatin dessert, and popsicles. Avoid any liquids that contain red or purple dye. On the day of the procedure do not eat or drink anything starting 2 hours before the procedure, or within the time period that your health care provider recommends. Up to 2 hours before the procedure, you may continue to drink clear liquids, such as water or clear fruit juice. Bowel prep If you were prescribed an oral bowel prep to clean out your colon: Take it as told by your health care provider. Starting the day before your procedure, you will need to drink a large amount of medicated liquid. The liquid will cause you to have multiple loose stools until your stool is almost clear or light green. If your skin or anus gets irritated from diarrhea, you may use these to relieve the irritation: ?Medicated wipes, such as adult wet wipes with aloe and vitamin E. ?A skin-soothing product like petroleum jelly. If you vomit while drinking the bowel prep, take a break for up to 60 minutes and then begin the bowel prep again. If vomiting continues and you cannot take the bowel prep without vomiting, call your health care provider. To clean out your colon, you may also be given: ?Laxative medicines. ?Instructions about how to use an enema. General instructions Ask your health care provider about: ?Changing or stopping your regular medicines or supplements. This is especially important if you are taking iron supplements, diabetes medicines, or blood thinners. ?Taking medicines such as aspirin and ibuprofen. These medicines can thin your blood. Do not take these medicines before the procedure if your health care provider tells you not to. Plan to have someone take you home from the hospital or clinic. What happens during the procedure? An IV may be inserted into one of your veins. You will be given medicine to help you relax (sedative). To reduce your risk of infection: ?Your health care team will wash or sanitize their hands. ?Your anal area will be washed with soap. You will be asked to lie on your side with your knees bent. Your health care provider will lubricate a long, thin, flexible tube. The tube will have a camera and a light on the end. The tube will be inserted into your anus. The tube will be gently eased through your rectum and colon. Air will be delivered into your colon to keep it open. You may feel some pressure or cramping. The camera will be used to take images during the procedure. A small tissue sample may be removed to be examined under a microscope (biopsy). If small polyps are found, your health care provider may remove them and have them checked for cancer cells. When the exam is done, the tube will be removed. The procedure may vary among health care providers and hospitals. What happens after the procedure? Your blood pressure, heart rate, breathing rate, and blood oxygen level will be monitored until the medicines you were given have worn off. Do not drive for 24 hours after the exam. You may have a small amount of blood in your stool. You may pass gas and have mild abdominal cramping or bloating due to the air that was used to inflate your colon during the exam. It is up to you to get the results of your procedure. Ask your health care provider, or the department performing the procedure, when your results will be ready. Summary A colonoscopy is an exam to look at the entire large intestine. During a colonoscopy, a lubricated, flexible tube with a camera on the end of it is inserted into the anus and then passed into the colon and other parts of the large intestine. Follow instructions from your health care provider about eating and drinking before the procedure. If you were prescribed an oral bowel prep to clean out your colon, take it as told by your health care provider. After your procedure, your blood pressure, heart rate, breathing rate, and blood oxygen level will be monitored until the medicines you were given have worn off. This information is not intended to replace advice given to you by your health care provider. Make sure you discuss any questions you have with your health care provider. Document Released: 06/09/2001 Document Revised: 04/04/2018 Document Reviewed: 08/23/2016 [employer] Patient Education [email or web address]. Follow Up Care 05/17/2022 13:34:35 With:Karishma Irwin CNP Address: When:1 to 2 weeks Comments:Following colonoscopy. 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 ([facility]) Breast cancer screening by mammogram documented in this encounter [facility] Hospital Discharge instructions Note Date & Type Note Facility Hospital Discharge instructions No data available for this section [facility] Progress note Note Date & Type Note Facility Progress note No data available for this section [facility] Summary Purpose Family History No Family History Records FoundNo Family History Records Found No data available for this section No Family History Records FoundNo Family History Records FoundNo Family History Records FoundNo Family History Records FoundNo Family History Records FoundNo Family History Records FoundNo Family History Records FoundNo Family History Records Found No data available for this section Advance Directives No Advanced Directives Records FoundNo Advanced Directives Records FoundNo Advanced Directives Records FoundNo Advanced Directives Records FoundNo Advanced Directives Records FoundNo Advanced Directives Records FoundNo Advanced Directives Records FoundNo Advanced Directives Records FoundNo Advanced Directives Records FoundNo Advanced Directives Records Found Additional Source Comments INFORMATION SOURCE (unrecogn ized section and content) DATE CREATED AUTHOR 06/16/2022 [facility] DATE CREATED AUTHOR AUTHOR'S ORGANIZ ATION 10/24/2023 [facility] EPIC DATE CREATED AUTHOR AUTHOR'S ORGANIZ ATION 04/07/2024 Figueroa Duval [facility] DATE CREATED AUTHOR AUTHOR'S ORGANIZ ATION 04/08/2024 [facility] Patient Care team informatio n (unrecognized section and content) Personnel Name: AMARILIS LEE, Caitlin Heath Address: Address: [address] [place], [place] [address] [[email or web address]] Functional Analyst Relationship Specialty Start Date End Date Haley Acosta MD [address] [place] [address] PCP - General Family Medicine 11/01/22 Reason for Visit (unrecogniz ed section and content) Reason Comments Diabetes medication review FOR RECORDS PERTAINING TO PATIENTS WHO ARE OR HAVE BEEN ENROLLED IN A CHEMICAL DEPENDENCY/SUBSTANCEABUSE PROGRAM, SOME INFORMATION MAY BE OMITTED. This clinical summary was aggregated from multiple sources. Caution should be exercised in using it in the provision of clinical care. This summary normalizes information from multiple sources, and as a consequence, information in this document may materially change the coding, format and clinical context of patient data. In addition, data may be omitted in some cases. CLINICAL DECISIONS SHOULD BE BASED ON THE PRIMARY CLINICAL RECORDS. [facility] [employer] [facility]. provides no warranty or guarantee of the accuracy or completeness of information in this document.
[2024-04-09] MEDS: LIDOCAINE HCL 1% 100 MG/10 ML MDV INJ (18:25)
--- NOTE | 2024-04-09 18:36 | ED.WOUNDLAC1 ---
HPI - Wound/Laceration General Chief Complaint: Extremity Injury, Upper Stated Complaint: Laceration Time Seen by Provider: 04/09/24 18:08 Source: patient Mode of arrival: walk-in History of Present Illness HPI narrative: 63-year-old female presents to the emergency department for left thumb laceration which was sustained at work just before coming into the emergency department. No other injury was sustained. Her last tetanus shot was more than 10 years ago. No weakness or numbness. Related Data Home Medications ?Medication ?Instructions ?Recorded ?Confirmed atorvastatin 20 mg tablet 20 mg PO DAILY 07/04/23 04/09/24 lisinopril 10 mg tablet 10 mg PO QAM 07/04/23 04/09/24 metformin 850 mg tablet 1,700 mg PO QAM 07/04/23 04/09/24 sertraline 100 mg tablet 100 mg PO QAM 07/04/23 04/09/24 semaglutide 0.25 mg or 0.5 mg (2 0.5 mg subcut .weekly 04/09/24 04/09/24 mg/3 mL) subcutaneous pen injector (Revegy) Allergies Allergy/AdvReac Type Severity Reaction Status Date / Time Sulfa (Sulfonamide Allergy Severe Verified 07/04/23 20:59 Antibiotics) sulfamethoxazole (From Allergy Severe Verified 07/04/23 20:59 Bactrim) trimethoprim (From Bactrim) Allergy Severe Verified 07/04/23 20:59 Review of Systems ROS Narrative A ten point review of systems is negative except as noted above. PFSH PFSH Social History Little interest or pleasure in doing things: not at all Feeling down, depressed, or hopeless: not at all Exam Narrative Exam Narrative: Nurses note and vital signs reviewed and patient is not hypoxic. General: The patient appears well and in no apparent distress. Skin: Warm, dry, no pallor noted. There is no rash noted. Head: Normocephalic, atraumatic Eye: Normal conjunctiva, no drainage Ears, Nose, Mouth, and Throat: oral mucosa is moist. Nares patent. Cardiovascular: Regular Rate and Rhythm Respiratory: Patient is in no distress, no accessory muscle use GI: Soft and nontender Musculoskeletal: The left thumb is inspected. There is a 2 cm laceration on the left thumb over the proximal phalanx on the flexor side. IP joint has full range of motion. There is bleeding from the wound which is easily controlled with pressure. No other wound present. Neurological: A&O, normal speech Psychiatric: Cooperative Constitutional Vital Signs, click to edit/add: Last Vital Signs Temp 99.5 F 04/09/24 18:08 Pulse 62 04/09/24 18:08 Resp 18 04/09/24 18:08 BP 149/65 H 04/09/24 18:08 Pulse Ox 99 04/09/24 18:08 O2 Del Method Room Air 04/09/24 18:08 Course Vital Signs Vital signs: Vital Signs Temperature 99.5 F 04/09/24 18:08 Pulse Rate 62 04/09/24 18:08 Respiratory Rate 18 04/09/24 18:08 Blood Pressure 149/65 H 04/09/24 18:08 Pulse Oximetry 99 04/09/24 18:08 Oxygen Delivery Method Room Air 04/09/24 18:08 Temperature 99.5 F 04/09/24 18:08 Pulse Rate 62 04/09/24 18:08 Respiratory Rate 18 04/09/24 18:08 Blood Pressure 149/65 H 04/09/24 18:08 Pulse Oximetry 99 04/09/24 18:08 Oxygen Delivery Method Room Air 04/09/24 18:08 MDM - Wound/Laceration MDM Narrative Medical decision making narrative: The following procedure was performed by me. Local infiltration was carried out with 1% lidocaine without epinephrine resulting in complete skin anesthesia. The area was prepped with Betadine x 3 and draped sterilely. It was explored for foreign bodies and none were found and the wound was then closed with four 5-0 Ethilon sutures resulting in good skin reapproximation and no complications. Tube gauze dressing applied. Sutures are to be removed in a week and tetanus status was updated. Differential Diagnosis Differential diagnosis: Likely laceration Discharge Plan Discharge Chief Complaint: Extremity Injury, Upper Clinical Impression: Laceration of thumb Patient Disposition: Home, Self-Care Time of Disposition Decision: 18:35 Condition: Good Mode of Transportation: Private Vehicle Prescriptions / Home Meds: No Action Ozempic 0.25 mg or 0.5 mg (2 mg/3 mL) pen injector 0.5 mg SUBCUT .weekly atorvastatin 20 mg tablet 20 mg PO DAILY lisinopril 10 mg tablet 10 mg PO QAM metformin 850 mg tablet 1,700 mg PO QAM sertraline 100 mg tablet 100 mg PO QAM Print Language: [place] Citizen Instructions: Finger Laceration (ED) Additional Instructions: Leave dressing on for 48 hours. Remove and apply bandage daily. Sutures are to be removed in a week. Referrals: ANKIT OLMOS [Primary Care Provider] - 1 week
[2024-04-09] MEDS: ADACEL DIPH,PERTUSS(ACELL),TET VAC/PF 0.5 ML ADULT SYRINGE IM (18:53)
[2024-04-09 18:57] VITALS: BP 128/88; PULSE 88; O2SAT 98
== END 2024-04-09 18:58 | disposition home or self-care (01) ==
PROVIDERS: Emergency Provider Emergency Medicine; PCP Physician Assistant
DX: S61.012A Laceration without foreign body of left thumb without damage to nail, initial encounter (principal); Z23 Encounter for immunization; X58.XXXA Exposure to other specified factors, initial encounter
CPT/HCPCS: 12001; 90471; 90715; 99283